=== PATIENT | female | born 1990 | race Caucasian/White ===

== ENCOUNTER 2021-03-17 19:02 | Inpatient (IN) | payer BC, SELFPAY ==
[2021-03-17 19:16] VITALS: TEMP 37.1
[2021-03-17 19:17] VITALS: BP 135/83; PULSE 95
[2021-03-17 19:19] VITALS: BMI 35.9
[2021-03-17] MEDS: Lactated Ringers 1,000 ML 50 ML IV (19:30)
[2021-03-17 20:12] LABS: Absolute Lymphocyte Count 1.53 X10^3/uL (0.83-4.51); Absolute Neutrophil Count 6.6 X10^3/uL (2.0-7.7); Basophil# 0.04 X10^3/uL; Basophil% 0.4 % (0-1); Eosinophil# 0.18 X10^3/uL; Hematocrit 36.5 % (37-47); Hemoglobin 12.2 g/dL (12.0-15.0); Lymphocyte # 1.53 X10^3/ul (0.83-4.51); Lymphocyte % 17.1 % (19-41); Mean Corp Hgb Conc 33.4 g/dL (32-36); Mean Corpuscular Hgb 29.6 pg (27.0-32.0); Mean Corpuscular Volume 88.6 fL (81-99); Mean Platelet Vol. 9.5 fl (6.2-12.0); Monocyte# 0.53 X10^3/uL; Monocyte% 5.9 % (0-10); NRBC Flagged by Analyzer 0 % (0-5); Neutrophil # 6.56 X10^3/uL (2.7-7.7); Neutrophil % 73.6 % (47-70); Platelet Count 189 K/mm3 (150-450); RBC Distribution Width CV 14.1 % (11.6-14.6); RBC Distribution Width SD 45.5 fl (35.1-43.9); Red Blood Count 4.12 M/mm3 (4.2-5.4); White Blood Count 8.9 K/mm3 (4.4-11.0)
[2021-03-17 20:21] VITALS: BP 118/78; PULSE 79; TEMP 36.8; O2SAT 98
[2021-03-17] MEDS: miSOPROStol 25 MCG TABLET PO (20:22)
[2021-03-17 21:02] LABS: ROM Internal Control Test YES-OK TO RESULT pt. (Internal QC); ROM Patient Test Negative (Negative)
[2021-03-18] VITALS (20 sets, daily range): BP systolic 109–129; BP diastolic 53–78; PULSE 78–128; RESP 14–18; TEMP 35.8–36.6; O2SAT 96–100
--- NOTE | 2021-03-18 | PLAC_PTH ---
PATIENT: RENA ROIBN LOC: WP U#:[id number] AGE/SX: 30/F ROOM: WP006 RE03/17/[address]: Dr. Sindi Meeks MD : 1990 BED: 1 DIS: 03/20/2021 SPEC #: [id number] RECD: 03/18/21 02:21 STATUS: GILBERTO REArianna #: [id number] BEAU: 03/18/21 00:[address]: Sindi Meeks DEPT: SURGICAL PATHOLOGY RECD BY: Angela Sanon ENTERED: 03/18/21 08:34 SP TYPE: PLACENTA OTHR DR: Ofelia Lyon CNM Tissues: Placenta, NOS Procedures: Surgery Specimen Level V HEADER OPERATION: Primary section PRE-OP DIAGNOSIS: decelerations, 42 weeks TISSUE SUBMITTED: Placenta MICROSCOPIC DIAGNOSIS Ferreira placenta (316 gm): Umbilical cord ? trivascular with no inflammation. Placental membranes ? focal acute decidual inflammation. Placental disc ? Anette-Doroteo change, mildly increased intraparenchymal microcalcifications and intervillous congestion. AM:capo 03/20/2021 MICROSCOPIC DESCRIPTION Slides are reviewed. GROSS DESCRIPTION SPECIMEN: PLACENTA / CLINICAL INFORMATION: A. Weight: 3.06 kg B. Gestational Age: 42 weeks C. Sex: Female PLACENTAL WEIGHT (POST FIXATION): 316 gm PLACENTAL DIMENSIONS: 18.5 x 16.5 x 2 cm PLACENTAL SHAPE: Usual ovoid PLACENTAL WEIGHT FOR GESTATIONAL AGE: Under 10% percentile MEMBRANES - Present A. Insertion: Marginal B. Site of rupture from edge: At edge of placental disc C. Color of membrane: Jane-vasquez D. Abnormalities: None UMBILICAL CORD - Present A. Color: Jane-vasquez B. Insertion: Eccentric C. Length: 36 cm D. Diameter: 1 cm E. Number of vessels: Three F. Abnormalities: None PLACENTAL DISC - Present A. Color of surface: Jane-vasquez B. surface abnormalities: None C. Maternal cotyledons: Intact with minimal tears D. Attached retro placental clot: No clot E. Cut surface: Dark red and spongy F. Lesions: None G. Separate clot: Absent SECTIONS SUBMITTED: 1. Umbilical cord ( end notched) 2. Umbilical cord, placental end 3. Membrane roll 4. Placental disc, and maternal surfaces 5. Placental disc, and maternal surfaces 6. Placental disc, and maternal surfaces AM:capo 03/19/2021 TC:2 CPT: 50159
--- NOTE | 2021-03-18 00:47 | HP.PCM.OB_ITS ---
HPI - General General Date of Admission: 03/17/21 HPI Narrative RENA ROBIN, is a 30 F who presents for induction of labor at 41w6d. SUMAYA with transfer date on 06/13/20. . Presents for induction of labor for postdates . Offered induction of labor at 41 weeks and patient declined and agreed to 41w6d induction. complicated by IVF . Maternal Data Information CHEO Calculator Estimated Delivery Date Method Current WG Current Estimate 03/04/21 Manual 42w 0d PFSH [facility] Medical History (Updated 03/18/21 @ 00:55 by Ofelia Lyon CNM) Cholecystectomy planned Home Medications CoQ-10 100 mg PO/SL DAILY 03/17/21 [History Last Taken 03/16/21] 1 1 tab PO/SL DAILY 03/17/21 [History Last Taken Unknown] aspirin 81 mg PO DAILY 03/17/21 [History Last Taken 03/16/21] magnesium 200 mg PO/SL DAILY 03/17/21 [History Last Taken 03/16/21] metoclopramide HCl [Reglan] 10 mg PO 4X/DAY PRN 03/17/21 [History Last Taken 03/16/21] promethazine 25 mg PO PRN 03/17/21 [History Last Taken Unknown] vitamin [id number]-[id number] acid 03/17/21 [History Last Taken Unknown] Allergy/AdvReac Type Severity Reaction Status Date / Time amoxicillin Allergy Rash Verified 03/17/21 19:19 Surgical History History of appendectomy Social History Smoking Status: Never smoker History Elective abortions Hx Para 0 Spontaneous abortions Hx # Term Pregnancies Ectopic pregnancies Hx # Pregnancies Multiple births # of living children ROS Constitutional Constitutional: Reports systems reviewed and no addt'l complaints, except as documented; Denies headache(s) Eyes Eyes: Denies acute decrease in peripheral vision, blurry vision or change in vision ENT HEENT: Reports systems reviewed and no addt'l complaints, except as documented Cardiovascular Cardiovascular: Denies chest pain or dizziness Respiratory/Chest Respiratory/Chest: Denies cough, dyspnea, dyspnea on exertion, shortness of breath at rest or shortness of breath with exertion Gastrointestinal Gastrointestinal: Denies abdominal pain, diarrhea, nausea or vomiting Genitourinary Genitourinary: Denies abdominal discomfort or movement Musculoskeletal Musculoskeletal: Denies limited range of motion Integumentary Integumentary: Reports systems reviewed and no addt'l complaints, except as documented Neurologic Neurologic: Reports systems reviewed and no addt'l complaints, except as documented Psychiatric Psychiatric: Reports systems reviewed and no addt'l complaints, except as documented Endocrine Endocrinology: Reports systems reviewed and no addt'l complaints, except as documented Hematologic/Lymphatic Hematologic/Lymphatic: Reports systems reviewed and no addt'l complaints, except as documented Allergic/Immunologic Allergic/Immunologic: Reports systems reviewed and no addt'l complaints, except as documented Vital Signs Vital Signs Vital Signs: 03/17/21 19:16 03/17/21 19:17 03/17/21 20:21 Temperature 98.8 F 98.2 F Temperature Source Temporal Temporal Pulse Rate 95 79 Blood Pressure 135/83 H 118/78 BP Systolic 135 118 BP Diastolic 83 78 Pulse Ox 98 03/18/21 00:06 03/18/21 00:25 03/18/21 00:30 Temperature Temperature Source Pulse Rate 78 118 H 128 H Blood Pressure BP Systolic BP Diastolic Pulse Ox 96 99 100 Weight Weight: 183 lb 10.321 oz Body Mass Index (BMI) 35.9 Physical Exam Const alert and oriented x3 General Appearance: cooperative Orientation / Consciousness: awake, oriented to person, oriented to place and oriented to time Exam Limitations: no limitations HEENT normocephalic Head and Scalp: normal to inspection, normocephalic and atraumatic Face and Sinus: normal facial exam Eyes General Eye: normal appearance of both eyes Neck full ROM Chest Chest: symmetrical chest wall rise Resp normal respiratory effort and normal air movement GI non-tender appearance of the vagina normal Narrative: 1cm/60/-2 per nursing exam. IBOW Back/Spine normal ROM Extremity normal to inspection and full ROM Neuro oriented x3 and moves all extremities Sensorium / Orientation: awake, alert and oriented to person Deep Tendon Reflexes: Rt Patellar (L4): 2+ and Lt Patellar (L4): 2+ Labs Labs Labs: Blood Type O POSITIVE Antibody Screen NEGATIVE Hct 36.5 % (37-47) L Hgb 12.2 g/dL (12.0-15.0) O positive GBS positive, allergic to PCN, sensitivity to clindamycin RPR negative Rubella Immune HBsAG negative HepC negative HIV negative GC/CT negative Assessment & Plan (1) Post-dates : (2) resulting from in vitro fertilization: (3) Obesity affecting : PLAN: 1) Admit to labor and delivery 2) Routine labs 3) IV per protocol 4) PO cytotec for cervical ripening then pitocin per protocol 5) Continuos EFM 6) Pain management upon request 7) collaborative physician and notified of patient status
--- NOTE | 2021-03-18 00:56 | PCM.PN.OB ---
Subjective Subjective Resting in bed. Turned and heart rate decelerations noted. Called for evaluation. FHR to the 50s and returned to the 80s then to 130s normal baseline. Cervical exam showed 1cm per nursing. heart decelerations then continued. Objective Data Objective Data Vital Signs: Vital Signs Temp Pulse BP Pulse Ox 98.2 F 128 H 118/78 100 03/17/21 20:21 03/18/21 00:30 03/17/21 20:21 03/18/21 00:30 Weight: 183 lb 10.321 oz Body Mass Index (BMI) 35.9 Intake & Output: Intake and Output for Last 24 Hours 03/16/21 03/17/21 03/18/21 23:59 23:59 23:59 Intake Total 170.17 / 170.17 Balance 170.17 / 170.17 Lab / Micro Data Result Diagrams: 03/17/21 20:02 Labs: Laboratory Results - last 24 hr 03/17/21 20:02: WBC 8.9, RBC 4.12 L, Hgb 12.2, Hct 36.5 L, MCV 88.6, MCH 29.6, MCHC 33.4, RDW Std Deviation 45.5 H, RDW Coeff of Reza 14.1, Plt Count 189, MPV 9.5, Immature Gran % (Auto) 1.000 H, Neut % (Auto) 73.6 H, Lymph % (Auto) 17.1 L, [place] % (Auto) 5.9, Eos % (Auto) 2.0, Baso % (Auto) 0.4, Absolute Neuts (auto) 6.6, Absolute Lymphs (auto) 1.53, Nucleated RBC % 0 03/17/21 20:02: Blood Type O POSITIVE, Antibody Screen NEGATIVE 03/17/21 20:30: Vag Amniotic Fld Detect Negative Micro: Microbiology 03/17/21 19:25 Nasal Secretion SARS-CoV-2 Antigen (Rapid) - Final Assessment & Plan (1) Obesity affecting : (2) resulting from in vitro fertilization: (3) Post-dates : (4) heart rate decelerations affecting management of mother: PLAN: 1) called for evaluation for section due to continued heart rate decelerations and not in active labor 2) Prep for section
--- NOTE | 2021-03-18 01:37 | EX.PCM.OBRPT ---
Maternal Data Information CHEO Calculator Estimated Delivery Date Method Current WG Current Estimate 03/04/21 Manual 42w 0d Final CHEO: 03/04/21 Gestational age: 42 Details Operative Information Date of Procedure: 03/18/21 Pre-Operative Diagnosis: prolonged decelerations, intolerance of labor Post-Operative Diagnosis: same+ oligohydramnios Classification: SELINA Procedure Type: low transverse commercial reporter #1: Chaz Colin Type of Anesthesia: Spinal Anesthesiologist: Inez Alfaro Special Medications: duramorph Antibiotic Given: Ancef 2 grams IV x1 Drain: Kelly to straight drain Estimated Blood Loss: 800 Fluids Replaced: 1000 Procedure Start Time: : Procedure Stop Time: :45 Time of Delivery: :06 Findings Description of Procedure: I was called to labor and delivery for recurrent decelerations. The patient was angle irregularly and that was still 1 cm. She was 42 weeks gestational age and here for induction. She had received one dose of Cytotec. When I arrived, the heart tones had recovered to a baseline of approximately 110s to 115 bpm. It was determined there was adequate time for spinal to be placed in a prep to be done of the abdomen. Was decided to proceed with the section as soon as possible and we had the ability to proceed stat if needed. When I arrived the patient was already in the operating room. She was prepped and draped in the dorsal supine position with a leftward tilt. A Pfannenstiel skin incision was made approximately 2 cm above the symphysis pubis and carried through to underlying layer fascia with the scalpel. The fascia was incised incised in the midline and extended laterally with the Regalado scissors. The fascia was dissected off the rectus muscles with blunt and sharp dissection. The rectus muscles were in the midline and the peritoneum was entered bluntly. The peritoneal incision was stretched and the bladder blade was placed. The uterine incision was made in a low transverse fashion with the scalpel and extended superiorly and inferiorly with blunt dissection. The amniotic membranes were ruptured and no significant amniotic fluid returned. I am suspicious that the patient may have had spontaneous rupture of membranes, however upon admission her ROM plus test was negative. The 's head was brought to the incision in the flexed position but would not deliver easily with fundal pressure. The vacuum was applied to the skull on the flexion point and 550 mmHg were applied. The head then delivered with one pull with fundal pressure and the vacuum was removed with zero pop-off's. The remainder of the infant was delivered with gentle traction and fundal pressure in the standard fashion. The mouth and nares were bulb suctioned. The cord was clamped and cut as the was stimulated. Cord clamping was delayed. The was handed off to the waiting nursing staff. The placenta was delivered with fundal massage and gentle traction in the standard fashion. The uterus was exteriorized and cleared of all clots and debris. The cervix was dilated with a ring forcep. The uterine incision was closed with #1 Vicryl in a running locked fashion. A second layer of the same suture was used in an imbricating fashion. The incision was examined and was found to be hemostatic. The uterus was placed back into the peritoneal cavity and hemostasis was again confirmed. The rectus muscles were examined and any bleeding was Bovie cauterized. The parietal peritoneum and rectus muscles were closed en bloc with an 0 Vicryl running suture. The surgical teams outer gloves were then changed. The rectus fascia was examined and any bleeding was Bovie cauterized and the rectus fascia was closed with 1 Vicryl suture in a running standard fashion. The subcutaneous tissue was examining and any bleeding was Bovie cauterized. The subcutaneous tissue was reapproximated with 3-0 Vicryl suture. The skin was closed in a subcuticular fashion by the OPERATIONS [employer]ISTS with me present in the labor and delivery suite. I performed the remainder of the procedure with assistance. All sponge, lap, and needle counts were correct. The patient was taken to her room for recovery in a stable condition. Presentation: Positive for Vertex Amniotic Membrane Rupture Type: Artificial Amniotic Fluid Description: Clear Placental Delivery Description: Expressed Placenta Disposition: Sent to Pathology Cord Vessel Description: 3 Vessels Cord Entanglement: None Cord Gases: ABG and VBG Infant A Gender: Female (1 minute): 8 (5 minute): 9 Delayed Cord Clamping: Yes Complications Complications: none Admit VTE Documentation VTE Present on Admission: No VTE Mechan Device Prophylaxis: SCD's VTE Pharm Prophylaxis Ordered: No Reason Prophylaxis Not Ordered: Procedure Not Indicated
[2021-03-18] MEDS: Oxytocin 30 units/NS 500 ml 30 UNITS/500 ML IV.SOLN 167 UNITS IV (02:05)
--- NOTE | 2021-03-18 02:45 | NURSING ---
indeterminant rupture time, see provider operative noted
[2021-03-18 03:15] LABS: Pathology Specimen OB SEE PATHOLOGY REPORT
[2021-03-18] MEDS: Ketorolac 30 MG/ML Syringe IV ×4 (03:45→22:32)
[2021-03-18] MEDS: Acetaminophen 500 MG Tablet 1000 MG PO ×4 (04:11→22:32)
[2021-03-18] MEDS: Lactated Ringers 1,000 ML 100 ML IV (05:35)
[2021-03-18] MEDS: Senna/Docusate Sodium 1 Tablet PO (10:24)
[2021-03-18] MEDS: 0.9% Saline Lock 10 ML Syringe IV ×3 (10:25→22:32)
[2021-03-18] MEDS: Enoxaparin 40 MG/0.4 ML Syringe SC (14:23)
[2021-03-19 03:15] VITALS: BP 112/54; PULSE 78; RESP 16; TEMP 36.7; O2SAT 98
[2021-03-19] MEDS: Ibuprofen 600 MG Tablet PO ×4 (04:49→23:03)
[2021-03-19] MEDS: Acetaminophen 500 MG Tablet 1000 MG PO ×4 (04:49→23:03)
--- NOTE | 2021-03-19 08:29 | PCM.PN.OB ---
Subjective Subjective Patient seen at bedside. Still has mueller catheter in place. Was unable to void after 12 hours. Mueller to be discontinued today. Ambulating without difficulty. Passing flatus. Denies any headache, vision changes, SOB or CP. with assistance. Desires discharge home tomorrow. Objective Data Objective Data Vital Signs: Vital Signs Temp Pulse Resp BP Pulse Ox 98.0 F 78 16 112/54 L 98 03/19/21 03:15 03/19/21 03:15 03/19/21 03:15 03/19/21 03:15 03/19/21 03:15 Oxygen Delivery Method Room Air Weight: 183 lb 10.321 oz Body Mass Index (BMI) 35.9 Intake & Output: Intake and Output for Last 24 Hours 03/17/21 03/18/21 03/19/21 23:59 23:59 23:59 Intake Total 170.17 / 170.17 1202.50 / 1202.50 Output Total 2250 / 2250 1050 / 1050 Balance 170.17 / 170.17 -1047.50 / -1047.50 -1050 / -1050 Lab / Micro Data Result Diagrams: 03/17/21 20:02 Micro: Microbiology 03/17/21 19:25 Nasal Secretion SARS-CoV-2 Antigen (Rapid) - Final Physical Exam Narrative Dressing is dry and intact Const alert and no apparent distress General Appearance: cooperative and comfortable Exam Limitations: no limitations HEENT normocephalic Eyes General Eye: normal appearance of both eyes Neck full ROM General: normal visual inspection Chest Chest: symmetrical chest wall rise Resp normal respiratory effort and normal air movement Effort and Inspection: symmetric chest movement Auscultation: clear to auscultation bilaterally Cardio regular rate and regular rhythm GI normal to inspection, nondistended, normoactive bowel sounds Back/Spine normal ROM Extremity full ROM and no calf tenderness General Extremity: normal exam except as noted Skin no rashes or lesions noted Neuro CN's II-XII intact bilaterally Psych mental status grossly normal Assessment & Plan (1) Status post primary low transverse section: (2) Postoperative retention of urine: (3) Care and examination of lactating mother: PLAN: PO #2 Primary C/S Pain control D/C Mueller catheter and monitor for urine retention Breast feeding support Anticipate discharge home tomorrow
[2021-03-19 08:50] VITALS: BP 113/70; PULSE 88; RESP 18; TEMP 36.4; O2SAT 98
[2021-03-19 09:08] LABS: Hematocrit 29.6 % (37-47); Hemoglobin 9.3 g/dL (12.0-15.0); Mean Corp Hgb Conc 31.4 g/dL (32-36); Mean Corpuscular Hgb 29.3 pg (27.0-32.0); Mean Corpuscular Volume 93.4 fL (81-99); Mean Platelet Vol. 9.2 fl (6.2-12.0); Platelet Count 156 K/mm3 (150-450); RBC Distribution Width CV 14.3 % (11.6-14.6); RBC Distribution Width SD 49.1 fl (35.1-43.9); Red Blood Count 3.17 M/mm3 (4.2-5.4); White Blood Count 8.1 K/mm3 (4.4-11.0)
[2021-03-19 09:14] LABS: Scan Indicated on CBC? Y/N NO
[2021-03-19] MEDS: oxyCODONE 5 MG Tablet PO (09:20)
[2021-03-19] MEDS: Senna/Docusate Sodium 1 Tablet PO (10:57)
[2021-03-19] MEDS: Enoxaparin 40 MG/0.4 ML Syringe SC (10:58)
[2021-03-19 15:25] VITALS: BP 112/69; PULSE 89; RESP 18; TEMP 36.2; O2SAT 98
[2021-03-19 22:11] VITALS: BP 118/73; PULSE 85; RESP 18; TEMP 36.6; O2SAT 97
[2021-03-20 02:33] VITALS: BP 119/70; PULSE 83; RESP 18; TEMP 36.6; O2SAT 97
[2021-03-20] MEDS: Acetaminophen 500 MG Tablet 1000 MG PO ×2 (05:04→10:38)
[2021-03-20] MEDS: Ibuprofen 600 MG Tablet PO ×2 (05:04→10:39)
--- NOTE | 2021-03-20 07:40 | NURSING ---
This RN reviewed all charting by Mirta SIDDIQUI, agrees with all charting throughout shift.
--- NOTE | 2021-03-20 08:48 | PCM.PN.OB ---
Subjective Subjective Ambulating and urinating without difficulty. and average lochia.Pain well controlled Objective Data Objective Data Vital Signs: Vital Signs Temp Pulse Resp BP Pulse Ox 97.8 F 83 18 119/70 97 03/20/21 02:33 03/20/21 02:33 03/20/21 02:33 03/20/21 02:33 03/20/21 02:33 Oxygen Delivery Method Room Air Weight: 83.3 kg Body Mass Index (BMI) 35.9 Intake & Output: Intake and Output for Last 24 Hours 03/18/21 03/19/21 03/20/21 23:59 23:59 23:59 Intake Total 1202.50 / 1202.50 Output Total 2250 / 2250 2350 / 2350 Balance -1047.50 / -1047.50 -2350 / -2350 Lab / Micro Data Result Diagrams: 03/19/21 08:52 Labs: Laboratory Results - last 24 hr 03/19/21 08:52: WBC 8.1, RBC 3.17 L, Hgb 9.3 L, Hct 29.6 L, MCV 93.4 D, MCH 29.3, MCHC 31.4 L D, RDW Std Deviation 49.1 H, RDW Coeff of Reza 14.3, Plt Count 156, MPV 9.2 Micro: Microbiology 03/17/21 19:25 Nasal Secretion SARS-CoV-2 Antigen (Rapid) - Final Physical Exam Const alert General Appearance: cooperative GI GI Narrative: soft, moderate distention, fundus firm, appropriately tender. Abdominal bandage clean dry and intact Assessment & Plan (1) Status post primary low transverse section: PLAN: Postoperative day #2 status post primary section. Mild acute blood loss anemia appropriate for blood loss during the surgery. is breast-feeding and doing well. Patient desires discharge home today. Discharge instructions reviewed.
--- NOTE | 2021-03-20 08:50 | DS.PCM_ITS ---
Providers Date of Admission: 03/17/21 Reason For Visit: PRIMARY C SECTION Diagnosis Discharge Diagnosis (1) Status post primary low transverse section: Status: Acute Code(s): Z98.891 - History of uterine scar from previous surgery Medications at Discharge Home Medications CoQ-10 100 mg PO/SL DAILY 03/17/21 1 1 tab PO/SL DAILY 03/17/21 magnesium 200 mg PO/SL DAILY 03/17/21 vitamin [id number] acid 03/17/21 ibuprofen 600 mg PO Q6H PRN PRN 20 Days #60 tablet 03/20/21 Hospital Course Operations - (Primary low transverse section with double layer uterine closure performed on 03/18/2021) Procedures None Summary of Care Provided Hospital Course: Patient is a 30-year-old nulliparous female who was admitted for induction. She had declined induction until 42 weeks. Upon admission she received 1 dose of Cytotec and had recurrent prolonged decelerations. She underwent an urgent section. This was performed without difficulty. By postoperative day #2 she was ambulating, urinating tolerating regular diet and was discharged home with routine instructions. She declined narcotic p rescription. Weight / BMI Weight Weight: 83.3 kg Body Mass Index (BMI) 35.9 ABG / Lab / Microbiology Data Result Diagrams: 03/19/21 08:52 Laboratory: Laboratory Results - last 24 hr 03/19/21 08:52: WBC 8.1, RBC 3.17 L, Hgb 9.3 L, Hct 29.6 L, MCV 93.4 D, MCH 29.3, MCHC 31.4 L D, RDW Std Deviation 49.1 H, RDW Coeff of Reza 14.3, Plt Count 156, MPV 9.2 Microbiology: Microbiology 03/17/21 19:25 Nasal Secretion SARS-CoV-2 Antigen (Rapid) - Final Meaningful Use Info Meaningful Use Diagnoses (Choose all that apply): None applicable Discharge Plan Admission Admit Date/Time: 03/17/21 19:02 Primary Reason for Your Visit: Labor and delivery Attending Provider: Sindi Meeks Discharge Orders/Prescriptions Prescriptions: New ibuprofen [ibuprofen] 600 MG tablet 600 mg PO Q6H PRN PRN (Reason: moderate pain (scale score 5-6)) 20 Days Qty: 60 RF: 1 Continued CoQ-10 100 mg PO/SL DAILY RF: 0 1 1 tab PO/SL DAILY RF: 0 magnesium 200 mg PO/SL DAILY RF: 0 vitamin N93-xwpnr acid RF: 0 Discontinued promethazine 25 mg tablet 25 mg PO PRN (Reason: Nausea) RF: 0 metoclopramide HCl [Reglan] 10 mg Tablet 10 mg PO 4X/DAY PRN (Reason: headaches) RF: 0 aspirin 81 mg Capsule 81 mg PO DAILY RF: 0 Disposition Disposition (needs filled in before D/C Order can be placed): Home, Self Care
[2021-03-20 08:54] VITALS: BP 106/78; PULSE 86; RESP 12; TEMP 36.6; O2SAT 98
[2021-03-20] MEDS: Enoxaparin 40 MG/0.4 ML Syringe SC (10:39)
[2021-03-20] MEDS: Senna/Docusate Sodium 1 Tablet PO (10:39)
[2021-03-20 12:43] VITALS: BP 110/69; PULSE 79; RESP 16; TEMP 36.8; O2SAT 97
--- NOTE | 2021-03-20 18:20 | NURSING ---
This RN has reviewed and agrees with all charting by SN Denisha. This RN was present for all medication administrations.
== END 2021-03-20 13:35 | disposition home or self-care (01) | DRG 787 ==
PROVIDERS: Advanced Practice Midwife; Admitting Provider Advanced Practice Midwife; Visit Provider Obstetrics & Gynecology
DX: O48.0 Post-term pregnancy (principal); O41.03X0 Oligohydramnios, third trimester, not applicable or unspecified; O76 Abnormality in fetal heart rate and rhythm complicating labor and delivery; R33.9 Retention of urine, unspecified; Z3A.42 42 weeks gestation of pregnancy; Z37.0 Single live birth; Z79.82 Long term (current) use of aspirin; Z79.899 Other long term (current) drug therapy; O99.824 Streptococcus B carrier state complicating childbirth; O99.214 Obesity complicating childbirth; Z20.822 Contact with and (suspected) exposure to COVID-19
CPT/HCPCS: 36415; 59025; 59050; 84112; 85025; 85027; 86850; 86900; 86901; 87426; 88307; 99218; J7120; A4216; G0378; J2405

== ENCOUNTER → 2024-09-15 | Outpatient (CLI) | payer BC, SELFPAY | END | disposition home or self-care (01) | LOC: LABSPEC 16:11 | PROVIDERS: Visit Provider Nurse Practitioner Family | DX: Z12.4 Encounter for screening for malignant neoplasm of cervix (principal) | CPT/HCPCS: 87624; 88175; G0145 ==